=== PATIENT | male | born 1990 | race Caucasian/White ===

== ENCOUNTER → 2021-12-06 | Outpatient (CLI) | payer OTHER | END | disposition home or self-care (01) | LOC: RAH 11:19 | PROVIDERS: ATTEND Orthopaedic Surgery | DX: M17.12 Unilateral primary osteoarthritis, left knee (principal); M23.90 Unspecified internal derangement of unspecified knee; M25.462 Effusion, left knee | CPT/HCPCS: 73721 ==

== ENCOUNTER 2022-02-12 07:04 | Day surgery (SDC) | payer OTHER, BC ==
[2022-02-10 09:53] LABS: BASOPHILS % (AUTO) 0.7 % (0.0-5.0); CREATININE 1.2 mg/dL (0.5-1.5); EOSINOPHILS % (AUTO) 1.5 % (0.0-8.0); HEMATOCRIT 43.9 % (42-54); LYMPHOCYTES % (AUTO) 29.1 % (21.0-51.0); MEAN CORPUSCULAR HEMOGLOBIN 28.5 pg (27.0-33.0); MEAN CORPUSCULAR HGB CONC 32.6 g/dL (32.0-36.0); MEAN CORPUSCULAR VOLUME 87.6 fL (79-99); MONOCYTES % (AUTO) 8.3 % (3.0-13.0); NEUTROPHILS % (AUTO) 60.1 % (40.0-77.0); PLATELET COUNT (AUTO) 230 K/uL (130-400); POTASSIUM 3.9 mmol/L (3.5-5.1); RED BLOOD CELL COUNT(AUTO) 5.01 MIL/uL (4.50-6.20); RED CELL DISTRIBUTION WIDTH 13.2 % (11.0-15.5); WHITE BLOOD COUNT (AUTO) 7.2 K/uL (4.8-10.8)
[2022-02-11 09:19] VITALS: BP 141/74
[~2022-02-12] VITALS: Ht 170.2 cm; Wt 100.4 kg
[2022-02-12] VITALS (17 sets, daily range): BP systolic 114–144; BP diastolic 57–80
[~2022-02-12 07:04] MED LIST: BUPIVACAINE/EPI/PF 0.25% 50 ML VIAL IJ ONE; BUPIVACAINE/PF 0.25% 30ML VIAL IJ ONE; CEFAZOLIN SODIUM 2 GM VIAL IV ONE; NAPR220T57 PO
[2022-02-12] MEDS ORDERED: LACTATED RINGERS 1000ML 1,000 ML IV ONE (07:21)
[2022-02-12] MEDS ORDERED: CEFAZOLIN SODIUM 1 GM VIAL IVP ONE (08:00)
[2022-02-12] MEDS ORDERED: BUPIVACAINE/PF 0.25% 30ML VIAL IJ ONE (08:51)
[2022-02-12] MEDS ORDERED: LIDOCAINE PF 100MG/5ML (2%) SYRINGE 5ML ONE (09:03)
[2022-02-12] MEDS ORDERED: DEXAMETHASONE SOD PHOSPHATE 10MG/ML 1ML VIAL ONE (09:03)
[2022-02-12] MEDS ORDERED: MIDAZOLAM HCL 1 MG/ML 2ML VIAL ONE (09:04)
[2022-02-12] MEDS ORDERED: ONDANSETRON 4MG INJ ONE (09:04)
[2022-02-12] MEDS ORDERED: PROPOFOL 10 MG/ML 20ML VIAL IV ONE (09:05)
[2022-02-12] MEDS ORDERED: FENTANYL CITRATE PF 50 MCG/1 ML 2ML VIAL ONE ×2 (09:05→10:22)
[2022-02-12] MEDS ORDERED: ROCURONIUM 10MG/1ML SYR 10 MG/ML ML ONE (09:05)
[2022-02-12] MEDS ORDERED: CEFAZOLIN SODIUM 2 GM VIAL IV ONE (10:00)
[2022-02-12] MEDS ORDERED: NEOSTIGMINE 5MG/5ML SYR IV ONE (10:23)
[2022-02-12] MEDS ORDERED: GLYCOPYRROLATE 1 MG/5 ML SYRINGE ONE (10:23)
[2022-02-12] MEDS ORDERED: MEPERIDINE-PF 25 MG/ML SYG ONE ×2 (11:13→11:24)
[2022-02-12] MEDS ORDERED: CEPH500B PO ×2 (11:16→14:39)
[2022-02-12] MEDS ORDERED: ACET-2079 PO ×2 (11:16→14:39)
== END 2022-02-12 13:05 | disposition home or self-care (01) ==
LOC: DAH 07:04
PROVIDERS: ATTEND Orthopaedic Surgery
DX: M23.42 Loose body in knee, left knee (principal); M22.42 Chondromalacia patellae, left knee; K21.9 Gastro-esophageal reflux disease without esophagitis; Z79.899 Other long term (current) drug therapy; Z79.01 Long term (current) use of anticoagulants; Z98.890 Other specified postprocedural states; Z90.49 Acquired absence of other specified parts of digestive tract; Z98.52 Vasectomy status
CPT/HCPCS: 80048; 85025; 87426; 36415; 29877; 27337; A4649 ×2; J0690 ×2; J7120; J3010 ×2; J3490; J1100; J2710; J2001; J2250; J2704; J2405; J2175 ×2; A6223; A4930; A5120; A4215; A4223; A4222; A4221; A4663; A6450